=== PATIENT | male | born 1995 | race Caucasian/White ===

== ENCOUNTER 2021-07-05 10:50 | Emergency (ER) | payer SELFPAY ==
[~2021-07-05] VITALS: Wt 81.6 kg
[2021-07-05] MEDS ORDERED: IBUPROFEN600 MG PO (12:43)
[2021-07-05] MEDS ORDERED: AUGMENTIN 875875 MG PO (12:43)
== END 2021-07-05 13:12 | disposition home or self-care (01) ==
LOC: ED 10:50
DX: H61.22 Impacted cerumen, left ear (principal); H66.92 Otitis media, unspecified, left ear